=== PATIENT | female | born 1945 | race Caucasian/White ===

== ENCOUNTER 2019-07-18 14:25 | Emergency (ER) | payer MEDICARE, BC ==
[2019-07-18] MEDS ORDERED: Diphtheria,Pertussis(Acell),Tetanus Vaccine 0.5 ML SDV IM ONE (15:51)
--- NOTE | 2019-07-18 17:16 | EDM.PDOC ---
ED HPI GENERAL MEDICAL PROBLEM - General Chief Complaint: General Stated Complaint: FALL,LACERATION Time Seen by Provider: 07/18/19 14:30 Source of Information: Reports: Patient - History of Present Illness INITIAL COMMENTS - FREE TEXT/NARRATIVE: Patient is a 73 yo WF who missed some steps omari downstairs fell and landed on her left side. She sustaine a shallow and tinyl laceration on the left confucianist but there was no LOC after the fall. She also c/o left shoulder,left knee,and left ankle pain. The right wrist is also hurting. Her pain is mild according to her and doesn't want any pain medication for now. - Related Data Allergies Allergy/AdvReac Type Severity Reaction Status Date / Time ranitidine [From Zantac] Allergy Itching Verified 07/18/19 14:54 Home Meds: Home Meds Levothyroxine Sodium [Synthroid] 75 mcg PO DAILY 07/18/19 [History] Past Medical History Musculoskeletal History: Reports: Other (See Below) Other Musculoskeletal History: States she has ongoing bilateral knee pain. - Past Surgical History GI Surgical History: Reports: Appendectomy, Cholecystectomy Female Surgical History: Reports: Hysterectomy, Nephrectomy, Oophorectomy Social & Family History - Family History HEENT: Reports: None Cardiac: Reports: None Respiratory: Reports: None GI: Reports: None OBGYN: Reports: None Musculoskeletal: Reports: None Neurological: Reports: None ED ROS GENERAL - Review of Systems Review Of Systems: See Below Constitutional: Reports: No Symptoms HEENT: Reports: No Symptoms Respiratory: Reports: No Symptoms Cardiovascular: Reports: No Symptoms Endocrine: Reports: No Symptoms GI/Abdominal: Reports: No Symptoms : Reports: No Symptoms Musculoskeletal: Reports: No Symptoms Skin: Reports: No Symptoms Neurological: Reports: No Symptoms Psychiatric: Reports: No Symptoms Hematologic/Lymphatic: Reports: No Symptoms Immunologic: Reports: No Symptoms ED EXAM, GENERAL - Physical Exam Exam: See Below Exam Limited By: No Limitations General Appearance: No Apparent Distress Eye Exam: Bilateral Eye: Abnormal EOM Ears: Normal External Exam Ear Exam: Bilateral Ear: Auricle Normal, Canal Normal, TM normal Nose: Normal Inspection Throat/Mouth: Normal Inspection Head: Other (abrasuion and 0.5 cm laceration,shallow over the left confucianist.) Neck: Normal Inspection, Supple, Non-Tender Respiratory/Chest: No Respiratory Distress, Lungs Clear, Normal Breath Sounds Cardiovascular: Normal Peripheral Pulses, Regular Rate, Rhythm, No Edema, No Gallop GI/Abdominal: Normal Bowel Sounds, Soft, Non-Tender, No Organomegaly, No Distention, No Abnormal Bruit (Female) Exam: Deferred Rectal (Female) Exam: Deferred Back Exam: Normal Inspection Extremities: Normal Inspection, Other (tenderness-left shoulder,;eft knee,left ankle,right wrist) Psychiatric: Normal Affect Skin Exam: Warm Course - Vital Signs Text/Narrative:: xray and CT scan reviewed with patient wound was cleansed Tdap given The laceration didn't require any suturing because it's shallow and has already quit bleeding. Last Recorded V/S: Last Vital Signs Temp 36.7 C 07/18/19 16:30 Pulse 70 07/18/19 16:30 Resp 16 07/18/19 16:30 BP 114/58 L 07/18/19 16:30 Pulse Ox 100 07/18/19 16:30 - Orders/Labs/Meds Orders: Active Orders 24 hr Category Date Time Status Vaccines to be Administered [RC] PER UNIT ROUTINE Care 07/18/19 15:51 Active Ankle Min 3V Lt [CR] Stat Exams 07/18/19 16:20 Taken Head wo Cont [CT] Stat Exams 07/18/19 16:20 Taken Knee 3V Lt [CR] Stat Exams 07/18/19 16:20 Taken Shoulder Comp Lt [CR] Stat Exams 07/18/19 16:20 Taken Wrist Comp Min 3V Rt [CR] Stat Exams 07/18/19 16:21 Taken Meds: Medications Discontinued Medications Generic Name Dose Route Start Last Admin Trade Name Joseq PRN Reason Stop Dose Admin Diphtheria/Tetanus/Acell Pertussis 0.5 ml 07/18/19 15:51 07/18/19 16:18 Adacel IM 07/18/19 15:52 0.5 ml .ONCE ONE Administration Departure - Departure Time of Disposition: 17:05 Disposition: Home, Self-Care 01 Condition: Good Clinical Impression: Musculoskeletal strain, Laceration of head - Discharge Information *PRESCRIPTION DRUG MONITORING PROGRAM REVIEWED*: No *COPY OF PRESCRIPTION DRUG MONITORING REPORT IN PATIENT HARDEEP: No Instructions: Laceration Care, Adult Referrals: Claudio Jaimes MD [Primary Care Provider] - Forms: ED Department Discharge Additional Instructions: If your wound have trickles of blood apply deep pressure for 30 minutes you may take tylenol 1000 mg every 8 hours as needed for pain follow up if sypmtoms persist or worsen - Problem List & Annotations (1) Laceration of head SNOMED Code(s): 679539693 Code(s): S01.91XA - LACERATION W/O FOREIGN BODY OF UNSP PART OF HEAD, INIT Status: Acute Current Visit: Yes (2) Musculoskeletal strain SNOMED Code(s): 658234289 Code(s): T14.8XXA - OTHER INJURY OF UNSPECIFIED BODY REGION, INITIAL ENCOUNTER Status: Acute Current Visit: Yes - My Orders Last 24 Hours: My Active Orders 07/18/19 15:51 Vaccines to be Administered [RC] PER UNIT ROUTINE 07/18/19 16:20 Ankle Min 3V Lt [CR] Stat Head wo Cont [CT] Stat Knee 3V Lt [CR] Stat Shoulder Comp Lt [CR] Stat 07/18/19 16:21 Wrist Comp Min 3V Rt [CR] Stat - Assessment/Plan Last 24 Hours: My Active Orders 07/18/19 15:51 Vaccines to be Administered [RC] PER UNIT ROUTINE 07/18/19 16:20 Ankle Min 3V Lt [CR] Stat Head wo Cont [CT] Stat Knee 3V Lt [CR] Stat Shoulder Comp Lt [CR] Stat 07/18/19 16:21 Wrist Comp Min 3V Rt [CR] Stat
== END 2019-07-18 17:50 | disposition home or self-care (01) ==
LOC: FB.ED 14:25
DX: S96.912A Strain of unspecified muscle and tendon at ankle and foot level, left foot, initial encounter (principal); S46.912A Strain of unspecified muscle, fascia and tendon at shoulder and upper arm level, left arm, initial encounter; S86.912A Strain of unspecified muscle(s) and tendon(s) at lower leg level, left leg, initial encounter; S01.81XA Laceration without foreign body of other part of head, initial encounter; Z23 Encounter for immunization; Z88.8 Allergy status to other drugs, medicaments and biological substances; Z90.49 Acquired absence of other specified parts of digestive tract; W10.9XXA Fall (on) (from) unspecified stairs and steps, initial encounter
CPT/HCPCS: 70450; 73030-LT; 73110-RT; 73562-LT; 73610-LT; 90471; 90715; 99284-25

== ENCOUNTER 2022-06-03 21:21 | Emergency (ER) | payer MEDICARE, BC ==
[2022-06-03] MEDS ORDERED: Ibuprofen 600 MG Tab PO STA (22:47)
[2022-06-03] MEDS ORDERED: Ondansetron 4 MG Tab.DIS PO STA (22:47)
== END 2022-06-03 23:15 | disposition home or self-care (01) ==
LOC: FB.ED 21:21
DX: U07.1 COVID-19 (principal); E03.9 Hypothyroidism, unspecified; Z88.8 Allergy status to other drugs, medicaments and biological substances; Z90.49 Acquired absence of other specified parts of digestive tract; Z90.710 Acquired absence of both cervix and uterus; Z87.891 Personal history of nicotine dependence; Z79.899 Other long term (current) drug therapy
CPT/HCPCS: 71045; 99284; A9270; Q0162; U0002

== ENCOUNTER 2022-06-05 10:47 | Inpatient (IN) | payer MEDICARE, BC ==
[2022-06-05] MEDS ORDERED: Morphine 2 MG/ML SYRINGE IVPUSH ONE (11:03)
[2022-06-05] MEDS ORDERED: Ketorolac 30 MG/ML SDV IVPUSH STA (11:03)
[2022-06-05] MEDS ORDERED: Ondansetron 4 MG/2 ML SDV IVPUSH ONE (11:03)
[2022-06-05] MEDS ORDERED: Sodium Chloride 0.9% 1,000 ML IV SCH (11:15)
[2022-06-05 11:29] LABS: ESTIMATED GFR 39 mL/min (>60)
[2022-06-05] MEDS ORDERED: Iopamidol 755 Mg/ML 75 ML Bottle IV ONE (13:23)
[2022-06-05] MEDS ORDERED: Ondansetron 4 MG/2 ML SDV IVPUSH PRN (13:30)
[2022-06-05] MEDS: Dexamethasone 4 MG/ML SDV IVPUSH SCH (15:48)
[2022-06-05] MEDS: Enoxaparin 30 MG/0.3 ML Syringe SUBCUT SCH (15:49)
[2022-06-05] MEDS: Sodium Chloride 0.9% 10 ML Syringe FLUSH PRN ×4 (16:09→19:12)
[2022-06-05] MEDS: Ibuprofen 600 MG Tab PO PRN ×2 (17:10→22:51)
[2022-06-05] MEDS: Azithromycin 500 MG in Sodium Chloride 0.9% 250 ML IV SCH (18:57)
[2022-06-05] MEDS: Pantoprazole 40 MG Vial IVPUSH SCH (18:58)
[2022-06-05] MEDS: Codeine/guaiFENesin 10-100 MG/5 ML Syrup 5 ML Cup PO PRN (18:58)
[2022-06-05] MEDS: Sodium Chloride 0.9% 1,000 ML IV SCH (20:20)
[2022-06-06] MEDS: Sodium Chloride 0.9% 1,000 ML IV SCH (06:55)
[2022-06-06 07:10] LABS: ESTIMATED GFR 47 mL/min (>60)
[2022-06-06] MEDS: Acetaminophen/HYDROcodone 325-5 MG Tab PO PRN ×2 (08:22→20:00)
[2022-06-06] MEDS: Levothyroxine 75 MCG Tab PO SCH (08:25)
[2022-06-06] MEDS: Codeine/guaiFENesin 10-100 MG/5 ML Syrup 5 ML Cup PO PRN ×2 (08:25→20:00)
[2022-06-06] MEDS: Dexamethasone 4 MG/ML SDV IVPUSH SCH (08:44)
[2022-06-06] MEDS: Enoxaparin 30 MG/0.3 ML Syringe SUBCUT SCH (16:07)
[2022-06-06] MEDS: Azithromycin 500 MG in Sodium Chloride 0.9% 250 ML IV SCH (16:50)
[2022-06-06] MEDS: Pantoprazole 40 MG Vial IVPUSH SCH (17:56)
[2022-06-07 06:48] LABS: ESTIMATED GFR 58 mL/min (>60)
[2022-06-07] MEDS: Ibuprofen 600 MG Tab PO PRN (06:49)
[2022-06-07] MEDS: Levothyroxine 75 MCG Tab PO SCH (09:00)
[2022-06-07] MEDS: Dexamethasone 4 MG/ML SDV IVPUSH SCH (09:20)
[2022-06-07] MEDS: Azithromycin 500 MG in Sodium Chloride 0.9% 250 ML IV SCH (11:24)
== END 2022-06-07 13:40 | disposition home or self-care (01) | DRG 179 ==
LOC: FB.ED 10:47 → FB.MS 13:30 → UNDOADMIN 13:30
PROVIDERS: ADMIT Emergency Medicine; ATTEND Family Medicine
PROC: 3E0333Z Introduction of Anti-inflammatory into Peripheral Vein, Percutaneous Approach (ICD-10-PCS; principal; 2022-06-05)
DX: U07.1 COVID-19 (principal); R53.1 Weakness; E86.0 Dehydration; E03.9 Hypothyroidism, unspecified; Z79.890 Hormone replacement therapy; Z79.899 Other long term (current) drug therapy; Z88.8 Allergy status to other drugs, medicaments and biological substances; Z85.828 Personal history of other malignant neoplasm of skin; R06.02 Shortness of breath; Z88.7 Allergy status to serum and vaccine; Z86.16 Personal history of COVID-19; Z90.89 Acquired absence of other organs; Z98.41 Cataract extraction status, right eye; Z98.42 Cataract extraction status, left eye; Z90.49 Acquired absence of other specified parts of digestive tract; Z90.710 Acquired absence of both cervix and uterus; R11.2 Nausea with vomiting, unspecified
CPT/HCPCS: 36415; 71045; 80053; 83880; 84484; 85025; 85379; 93005; 96361; 96374; 96375; 99285; J1885; J2270; J2405; J7030; 71275; 80048; 93010; 99284; A9270-GY; C9113; J0456; J1100; J1650; J3490; J7050; Q9967

== ENCOUNTER 2022-07-17 12:15 | Emergency (ER) | payer MEDICARE, BC ==
[2022-07-17] MEDS ORDERED: Acetaminophen 500 MG Tab PO ONE (12:40)
[2022-07-17] MEDS ORDERED: Ketorolac 30 MG/ML SDV IVPUSH ONE (12:41)
[2022-07-17] MEDS ORDERED: Ondansetron 4 MG/2 ML SDV IVPUSH ONE (12:42)
[2022-07-17] MEDS ORDERED: Sodium Chloride 0.9% 1,000 ML IV SCH (12:45)
[2022-07-17 13:12] LABS: BASE EXCESS VENOUS,POC 0 mmol/L (-2 - 3+); PCO2 VENOUS,POC 39 mmHg (41-51); PH VENOUS,POC 7.41 pH Units (7.32-7.43)
[2022-07-17 13:34] LABS: ESTIMATED GFR 42 mL/min (>60)
[2022-07-19 15:11] LABS: CORNONAVIRUS (COVID19) CSH-NRL Negative (Negative)
== END 2022-07-17 15:30 | disposition home or self-care (01) ==
LOC: FB.ED 12:15
DX: J06.9 Acute upper respiratory infection, unspecified (principal); Z88.8 Allergy status to other drugs, medicaments and biological substances; Z88.7 Allergy status to serum and vaccine; Z79.899 Other long term (current) drug therapy; Z86.16 Personal history of COVID-19; Z90.49 Acquired absence of other specified parts of digestive tract; Z90.710 Acquired absence of both cervix and uterus; Z20.822 Contact with and (suspected) exposure to COVID-19
CPT/HCPCS: 36415; 71045; 80053; 81001; 83880; 84484; 85025; 85379; 93005; 96361; 96374; 96375; 99284; A9270; J1885; J2405; J7030; U0003; 93010; 99282

== ENCOUNTER 2023-11-23 16:28 | Emergency (ER) | payer MEDICARE, BC ==
[2023-11-23] MEDS ORDERED: Nitrofurantoin Monohydrate/Macrocrystalline 100 MG Cap PO ONE (16:29)
[2023-11-23 17:06] LABS: BASOPHILS ABSOLUTE AUTO 0.1 x10-3/uL (0.0-0.1); BASOPHILS PERCENT AUTO 1.1 % (0.2-1.5); EOSINOPHILS ABSOLUTE AUTO 0.1 x10-3/uL (0.0-0.8); EOSINOPHILS PERCENT AUTO 1.6 % (0.6-8.1); HEMATOCRIT 38.5 % (34.2-48.2); HEMOGLOBIN 12.6 g/dL (11.4-15.5); LYMPHOCYTES ABSOLUTE AUTO 1.1 x10-3/uL (1.0-4.4); LYMPHOCYTES PERCENT AUTO 14.5 % (18.4-52.1); MEAN CORPUSCULAR HEMOGLOBIN 29.8 pg (23.9-33.9); MEAN CORPUSCULAR HGB CONC 32.7 g/dL (31.9-34.8); MEAN CORPUSCULAR VOLUME 91.2 fL (76.7-100.5); MONOCYTES ABSOLUTE AUTO 0.7 x10-3/uL (0.3-1.0); MONOCYTES PERCENT AUTO 9.2 % (4.4-15.7); NEUTROPHILS ABSOLUTE AUTO 5.7 x10-3/uL (1.5-6.3); NEUTROPHILS PERCENT AUTO 73.6 % (30.8-76.2); PLATELET COUNT,PLT 273 x10(3)uL (151-488); RED BLOOD CELL COUNT 4.23 x10(6)uL (3.60-5.20); RED CELL DISTRIBUTION WIDTH 12.6 % (12.3-16.5); WHITE BLOOD CELL COUNT,WBC 7.8 x10-3/uL (3.0-10.3)
[2023-11-23 17:09] LABS: BLOOD UREA NITROGEN,BUN 29 mg/dL (7-18); BUN/CREATININE RATIO 22.3 (9-20); CALCIUM 9.6 mg/dL (8.6-10.2); CARBON DIOXIDE,CO2 29 mmol/L (21-32); CHLORIDE,CL 102 mmol/L (100-110); CREATININE 1.3 mg/dL (0.55-1.02); EST CRCL DRUG DOSING (CG) 24.93 mL/min; ESTIMATED GFR 42 mL/min (>60); GLUCOSE RANDOM 107 mg/dL (80-116); SODIUM,NA 137 mmol/L (135-145)
[2023-11-23 18:30] LABS: BILIRUBIN,URINE NEGATIVE (NEGATIVE); GLUCOSE,URINE NORMAL (NORMAL); KETONES,URINE NEGATIVE (NEGATIVE); LEUKOCYTE ESTERASE,URINE NEGATIVE (NEGATIVE); NITRITE,URINE NEGATIVE (NEGATIVE); OCCULT BLOOD,URINE NEGATIVE (NEGATIVE); PROTEIN,URINE NEGATIVE (NEGATIVE); UROBILINOGEN,URINE NORMAL (NEGATIVE)
[2023-11-23 18:31] LABS: APPEARANCE,URINE CLEAR (CLEAR); BACTERIA,URINE FEW (NS); COLOR,URINE YELLOW (YELLOW); RBC,URINE 0-5 (0-5); SQUAMOUS EPITHELIAL CELLS,UR FEW (NS,R,O); WBC,URINE 0-5 (0-5)
== END 2023-11-23 21:12 | disposition home or self-care (01) ==
LOC: FB.ED 16:28
DX: S22.41XA Multiple fractures of ribs, right side, initial encounter for closed fracture (principal); S39.011A Strain of muscle, fascia and tendon of abdomen, initial encounter; E03.9 Hypothyroidism, unspecified; Z86.16 Personal history of COVID-19; Z90.49 Acquired absence of other specified parts of digestive tract; Z90.710 Acquired absence of both cervix and uterus; Z79.899 Other long term (current) drug therapy; Z88.7 Allergy status to serum and vaccine; Z88.8 Allergy status to other drugs, medicaments and biological substances; X58.XXXA Exposure to other specified factors, initial encounter
CPT/HCPCS: 36415; 71045; 71250; 74176; 80048; 81001; 83605; 84484; 85025; 85651; 86140; 93005; 99284; A9270